=== PATIENT | female | born 1985 | race Caucasian/White ===

== ENCOUNTER 2024-04-20 12:47 | Emergency (ER) | payer BC, OTHER ==
[~2024-04-20] VITALS: Ht 180.3 cm; Wt 112.5 kg
[2024-04-20 13:02] VITALS: BP 137/99; TEMP 98.1
[2024-04-20 13:29] VITALS: O2SAT 100
== END 2024-04-20 13:29 | disposition home or self-care (01) ==
LOC: ER 12:47
DX: S09.90XA Unspecified injury of head, initial encounter (principal); W22.8XXA Striking against or struck by other objects, initial encounter; Y93.89 Activity, other specified; Y92.89 Other specified places as the place of occurrence of the external cause; Y99.8 Other external cause status